=== PATIENT | male | born 1965 | race Caucasian/White ===

== ENCOUNTER 2016-09-04 17:52 | Emergency (ER) | payer OTHER ==
[~2016-09-04] VITALS: Ht 177.8 cm; Wt 102.1 kg
[~2016-09-04 17:52] MED LIST: CLEOCIN150 MG PO; CLEOCIN300 MG PO; HYDROCODON-ACE1 EAC7 PO; MOTRIN600 MG PO; MUCINEX1200 MG PO; NAPROXEN500 MG PO; NORCO 5/3251 TABLET PO; PERCOCET 5/31 TABLET PO; PREDNISONE20 MG PO; PROAIR HFA8.5 GM IH; ZITHROMAX250 MG PO
[2016-09-04] MEDS ORDERED: MOTRIN800 MG PO (19:16)
[2016-09-04] MEDS ORDERED: FLEXERIL10 MG PO (19:16)
[2016-09-04 19:41] VITALS: BP 140/90
== END 2016-09-04 19:42 | disposition home or self-care (01) ==
LOC: EXP 17:52 → EME 17:52 → EXP 19:42
DX: S43.402A Unspecified sprain of left shoulder joint, initial encounter (principal); Y99.0 Civilian activity done for income or pay; X50.9XXA Other and unspecified overexertion or strenuous movements or postures, initial encounter; Z88.0 Allergy status to penicillin
CPT/HCPCS: 73030; 99281; 99284

== ENCOUNTER 2017-05-18 09:24 | Emergency (ER) | payer SELFPAY ==
[~2017-05-18] VITALS: Ht 177.8 cm; Wt 110.4 kg
[~2017-05-18 09:24] MED LIST changes: +FLEXERIL10 MG PO; +MOTRIN800 MG PO
[2017-05-18] MEDS ORDERED: ZITHROMAX Z-PA250 MG PO (12:50)
[2017-05-18] MEDS ORDERED: PREDNISONE20 MG PO (12:50)
[2017-05-18] MEDS ORDERED: CHERATUSSIN AC473 ML PO (12:50)
[2017-05-18 13:23] VITALS: BP 149/83
== END 2017-05-18 13:24 | disposition home or self-care (01) ==
LOC: EME 09:24
DX: J20.9 Acute bronchitis, unspecified (principal); M94.0 Chondrocostal junction syndrome [Tietze]; F17.200 Nicotine dependence, unspecified, uncomplicated; Z88.0 Allergy status to penicillin
CPT/HCPCS: 71020; 94640; 99281; 99283; J1885; J7512

== ENCOUNTER 2017-07-14 15:49 | Emergency (ER) | payer OTHER ==
[~2017-07-14] VITALS: Ht 177.8 cm; Wt 113.3 kg
[~2017-07-14 15:49] MED LIST changes: +CHERATUSSIN AC473 ML PO; +ZITHROMAX Z-PA250 MG PO
[2017-07-14] MEDS ORDERED: PERCOCET 5/31 TABLET PO (17:29)
[2017-07-14 17:42] VITALS: BP 155/81
== END 2017-07-14 17:43 | disposition home or self-care (01) ==
LOC: EME 15:49
DX: M54.41 Lumbago with sciatica, right side (principal); Y99.0 Civilian activity done for income or pay; F17.200 Nicotine dependence, unspecified, uncomplicated
CPT/HCPCS: J1885

== ENCOUNTER 2017-09-14 11:05 | Emergency (ER) | payer OTHER ==
[~2017-09-14] VITALS: Ht 180.3 cm; Wt 117.2 kg
[2017-09-14 11:51] LABS: APPEARANCE SL.HAZY ((CLEAR)); BILIRUBIN NEGATIVE; BLOOD NEGATIVE; COLOR YELLOW ((YELLOW)); GLUCOSE (STRIP) NEGATIVE; KETONES 5; LEUKOCYTES NEGATIVE; NITRITE NEGATIVE; PROTEIN (STRIP) NEGATIVE; SPECIFIC GRAVITY 1.029 (1.000-1.030)
[2017-09-14 11:52] LABS: HEMATOCRIT 44.3 % (38.0-50.0); HEMOGLOBIN 15.1 G/DL (12.5-16.6); MCH 30.6 PG (29.0-34.0); MCHC 34.1 G/DL (30.0-36.0); MCV 89.7 FL (86-99); PLATELET COUNT 290 K/uL (156-360); RBC DIS.WIDTH-CV 12.8 % (11.8-14.6); RBC DIS.WIDTH-SD 41.9 % (39-53); RED BLOOD COUNT 4.94 M/uL (4.00-5.50); WHITE BLOOD COUNT 6.9 K/uL (4.1-10.2)
[2017-09-14 11:58] LABS: BACTERIA RARE /HPF; EPITHELIAL CELLS NONE SEEN /HPF; MUCUS TRACE /LPF; RED BLOOD CELLS 0-5 /HPF (0-5); UCUL ADDED? NO; WHITE BLOOD CELLS 0-5 /HPF (0-5)
[2017-09-14 12:02] LABS: ALBUMIN 3.9 g/dL (3.2-4.8)
[2017-09-14 12:03] LABS: CHLORIDE 106 mEq/L (99-109); POTASSIUM 4.1 mEq/L (3.7-5.4); SODIUM 141 mEq/L (136-147)
[2017-09-14 12:05] LABS: GLUCOSE 138 mg/dL (70-99); TOTAL PROTEIN 6.4 g/dL (6.4-8.3)
[2017-09-14 12:07] LABS: TOTAL BILIRUBIN 0.2 mg/dL (0.0-1.0)
[2017-09-14 12:08] LABS: ALKALINE PHOSPHATASE 61 IU/L (3-129)
[2017-09-14 12:09] LABS: GFR ESTIMATE (CALCULATED) > 59 mL/min/ (58.99-99999)
[2017-09-14 12:10] LABS: AST (GOT) 18 IU/L (2-34); UREA NITROGEN (BUN) 17 mg/dL (9-23)
[2017-09-14 12:12] LABS: ALT (GPT) 28 IU/L (3-49); LIPASE 18 U/L (1.0-51.0)
[2017-09-14] MEDS ORDERED: SKELAXIN800 MG PO (15:57)
[2017-09-14] MEDS ORDERED: NAPROXEN500 MG PO (15:57)
[2017-09-14 16:08] VITALS: BP 130/75
== END 2017-09-14 16:09 | disposition home or self-care (01) ==
LOC: EME 11:05
DX: R07.89 Other chest pain (principal); R10.11 Right upper quadrant pain; G89.29 Other chronic pain; F17.200 Nicotine dependence, unspecified, uncomplicated; Z88.0 Allergy status to penicillin
CPT/HCPCS: 71046; 74176; 80053; 81003; 83690; 85027; 99281; 99284; J1885

== ENCOUNTER 2017-11-01 21:33 | Emergency (ER) | payer OTHER ==
[~2017-11-01] VITALS: Ht 177.8 cm; Wt 117.2 kg
[~2017-11-01 21:33] MED LIST changes: +SKELAXIN800 MG PO
[2017-11-01 22:07] LABS: HEMATOCRIT 45.1 % (38.0-50.0); HEMOGLOBIN 15.1 G/DL (12.5-16.6); MCH 30.8 PG (29.0-34.0); MCHC 33.5 G/DL (30.0-36.0); MCV 91.9 FL (86-99); PLATELET COUNT 297 K/uL (156-360); RBC DIS.WIDTH-CV 12.7 % (11.8-14.6); RBC DIS.WIDTH-SD 42.6 % (39-53); RED BLOOD COUNT 4.91 M/uL (4.00-5.50); WHITE BLOOD COUNT 7.4 K/uL (4.1-10.2)
[2017-11-01 22:16] LABS: ALBUMIN 3.9 g/dL (3.2-4.8); CHLORIDE 107 mEq/L (99-109); POTASSIUM 4.4 mEq/L (3.7-5.4); SODIUM 143 mEq/L (136-147)
[2017-11-01 22:17] LABS: APPEARANCE CLEAR ((CLEAR)); BILIRUBIN NEGATIVE; BLOOD NEGATIVE; COLOR YELLOW ((YELLOW)); GLUCOSE (STRIP) NEGATIVE; KETONES NEGATIVE; LEUKOCYTES NEGATIVE; NITRITE NEGATIVE; PROTEIN (STRIP) NEGATIVE; UCUL ADDED? NO; UROBILINOGEN 0.2 MG/DL (0.2-1.0)
[2017-11-01 22:18] LABS: GLUCOSE 106 mg/dL (70-99)
[2017-11-01 22:19] LABS: TOTAL PROTEIN 6.6 g/dL (6.4-8.3)
[2017-11-01 22:20] LABS: TOTAL BILIRUBIN 0.2 mg/dL (0.0-1.0)
[2017-11-01 22:22] LABS: ALKALINE PHOSPHATASE 65 IU/L (3-129); CREATININE 1.1 mg/dL (0.6-1.3); GFR ESTIMATE (CALCULATED) > 59 mL/min/ (58.99-99999)
[2017-11-01 22:23] LABS: UREA NITROGEN (BUN) 21 mg/dL (9-23)
[2017-11-01 22:24] LABS: AST (GOT) 18 IU/L (2-34)
[2017-11-01 22:25] LABS: ALT (GPT) 29 IU/L (3-49)
[2017-11-02 00:55] VITALS: BP 125/85
== END 2017-11-02 00:55 | disposition home or self-care (01) ==
LOC: EME 21:33 → RME 21:33
DX: K42.9 Umbilical hernia without obstruction or gangrene (principal); G89.29 Other chronic pain; Z88.0 Allergy status to penicillin; F17.200 Nicotine dependence, unspecified, uncomplicated
CPT/HCPCS: 74177; 80053; 81003; 85027; 99281; 99284; J2270; J7040

== ENCOUNTER → 2017-11-12 | Outpatient (CLI) | payer OTHER ==
[~2017-11-12] MED LIST changes: +ENDOCET 10-3251 EACH PO
== END | disposition home or self-care (01) ==
LOC: CDC 12:26
DX: Z01.810 Encounter for preprocedural cardiovascular examination (principal); K42.9 Umbilical hernia without obstruction or gangrene; R94.31 Abnormal electrocardiogram [ECG] [EKG]
CPT/HCPCS: 93000

== ENCOUNTER 2017-11-17 05:26 | Day surgery (SDC) | payer OTHER ==
[~2017-11-17] VITALS: Ht 177.8 cm; Wt 113.4 kg
[2017-11-17 06:01] VITALS: BP 137/86
[2017-11-17] MEDS ORDERED: DILAUDID4 MG PO (09:10)
[2017-11-17] MEDS ORDERED: ONDANSETRON HCL8 MG PO (09:10)
[2017-11-17] MEDS ORDERED: COLACE100 MG PO (09:10)
[2017-11-17 10:20] VITALS: BP 159/78
[2017-11-17 11:13] VITALS: BP 146/94
== END 2017-11-17 11:27 | disposition home or self-care (01) ==
LOC: SDC
PROC: 0WUF4JZ Supplement Abdominal Wall with Synthetic Substitute, Percutaneous Endoscopic Approach (ICD-10-PCS; principal; 2017-11-17)
DX: K42.9 Umbilical hernia without obstruction or gangrene (principal); K66.0 Peritoneal adhesions (postprocedural) (postinfection); F17.200 Nicotine dependence, unspecified, uncomplicated; Z88.0 Allergy status to penicillin
CPT/HCPCS: C1781; J0131; J1100; J1170; J1885; J2250; J2405; J2710; J3010; J3370